=== PATIENT | male | born 1990 | race Caucasian/White ===

== ENCOUNTER 2016-11-22 19:51 | Emergency (ER) | payer SELFPAY ==
[2016-11-22] MEDS ORDERED: ONDANSETRON 4 MG TAB.RAPDIS PO ONE (20:05)
[2016-11-22] MEDS ORDERED: OXYCODONE-ACETAMINOPHEN 5-325 MG TABLET PO ONE (20:05)
--- NOTE | 2016-11-22 20:05 | ER Document Report ---
ED Medical Screen (RME) - General Stated Complaint: FALL, LOWER BACK PAIN Time seen by provider: 20:03 Mode of Arrival: Ambulatory Information source: Patient Notes: 26-year-old male fell 6 feet onto his low back and right side. 3 hours ago. He is complaining of low back pain and right hip pain. TRAVEL OUTSIDE OF THE [place] IN LAST 30 DAYS: No - Related Data Allergies/Adverse Reactions: No Known Allergies Allergy (Verified 05/27/14 23:59) Past Medical History - Past Medical History Cardiac Medical History: Reports: Hx Atrial Fibrillation - Immunizations Immunizations up to date: Yes Hx Diphtheria, Pertussis, Tetanus Vaccination: Yes
[2016-11-22] MEDS ORDERED: KETOROLAC TROMETHAMINE 60 MG/2 ML SDV IM ONE (20:49)
[2016-11-22] MEDS ORDERED: LIDOCAINE 5% (700 MG) TRANSDERMAL ADH..PATCH TP ONE (20:49)
[2016-11-22] MEDS ORDERED: HYDROCODONE/ACETAMINOPHEN 5-325 MG 6 TAB/DSPK PO PRN (20:54)
--- NOTE | 2016-11-22 20:54 | ER Document Report ---
ED General - General Chief Complaint: Back Injury Stated Complaint: FALL, LOWER BACK PAIN Mode of Arrival: Ambulatory Notes: Patient is a 26-year-old male without past medical history presents after falling off of a garage onto the ground approximately 6 feet just prior to arrival. States he fell on his back. Since that time he has had a constant, throbbing, severe pain in his bilateral perilumbar thoracic spine. Denies any additional injury or pain. He has not tried anything for relief of his symptoms. Nothing worsens the symptoms. He has no history of similar symptoms in the past. He did not contact his primary care physician regarding today's concerns. Denies any associated weakness, numbness, bowel or bladder incontinence or retention. TRAVEL OUTSIDE OF THE [place] IN LAST 30 DAYS: No - Related Data Allergies/Adverse Reactions: No Known Allergies Allergy (Verified 05/27/14 23:59) Past Medical History - General Information source: Patient - Social History Smoking Status: Never Smoker Chew tobacco use (# tins/day): No Frequency of alcohol use: None Drug Abuse: None Family History: Reviewed & Not Pertinent Patient has suicidal ideation: No Patient has homicidal ideation: No - Past Medical History Cardiac Medical History: Reports: Hx Atrial Fibrillation Renal/ Medical History: Denies: Hx Peritoneal Dialysis - Immunizations Immunizations up to date: Yes Hx Diphtheria, Pertussis, Tetanus Vaccination: Yes Review of Systems - Review of Systems Notes: Constitutional: Negative for fever. Eyes: Negative for visual changes. ENT: Negative for facial injury Cardiovascular: Negative for chest injury. Respiratory: Negative for shortness of breath. Gastrointestinal: Negative for abdominal injury. Genitourinary: Negative for genital injury Musculoskeletal: Positive for back injury. Skin: Negative for laceration/abrasions. Neurological: Negative for head injury. Physical Exam - Vital signs Vitals: Temp Pulse Resp BP Pulse Ox 97.9 F 93 18 153/75 H 97 11/22/16 20:04 11/22/16 20:04 11/22/16 20:04 11/22/16 20:04 11/22/16 20:04 Interpretation: Hypertensive Notes: PHYSICAL EXAMINATION: GENERAL: Well-appearing, no acute distress. HEAD: Atraumatic, normocephalic. EYES: Pupils equal round and reactive to light, extraocular movements intact, sclera anicteric, conjunctiva are normal. ENT: nares patent, no oral pharyngeal trauma. no Plata's sign, no raccoon eyes. NECK: No midline cervical spine tenderness. Patient able to move their head to 45 bilaterally without any discomfort. LUNGS: Breath sounds clear to auscultation bilaterally and equal. No wheezes rales or rhonchi. HEART: Regular rate and rhythm without murmurs. CHEST WALL: No ecchymosis over the chest wall. ABDOMEN: Soft, nontender, normoactive bowel sounds. No guarding, no rebound. No seatbelt sign. EXTREMITIES: Normal range of motion, no pitting or edema. No long bone deformities. BACK: No midline spinal tenderness, step-offs, or deformities. Pain on palpation the bilateral perilumbar and thoracic spine NEUROLOGICAL: 5 out of 5 strength both distally and proximally bilateral lower extremities. 2+ patellar reflexes bilaterally. No clonus. Sensation grossly intact in the bilateral lower extremities. Patient is able to ambulate without difficulty. PSYCH: Normal mood, normal affect. SKIN: Warm, Dry, normal turgor, no rashes or lesions noted. Course - Re-evaluation Re-evalutation: 11/22/16 20:50 Presentation of a well appearing patient complaining of acute back pain after a fall. No rapid progression of symptoms, systemic symptoms including fevers, chills, weight loss, history of recent bacterial infection, bilateral symptoms, numbness, weakness, difficulty walking, urinary retention or bowel incontinence , personal history of cancer, immunosuppression, diabetes, known AAA, or history of IV drug use. Exam is without point tenderness over vertebral bodies , pulsatile abdominal mass, and patient has symmetric and intact lower extremity strength, sensation, and reflexes without clonus. 2+ symmetric medial malleolar and dorsalis pedis pulses Based on history and physical, I have a very low suspicion of a concerning etiology of pain including epidural compression syndrome, spinal infection, transverse myelitis, malignancy, abdominal aortic aneurysm, renal colic, acute lower extremity claudication, neurogenic claudication, ankylosing spondylitis, or other intra-abdominal process. Due to absence of concerning risk factors in history and physical as well as absence of rapidly progressive, severe, or bilateral symptoms, will defer imaging at this point. Plan to manage conservatively with outpatient analgesia, analgesia, and physical therapy. - Acetaminophen 650 q 4 + ibuprofen 600 q 6 - Continue normal daily activities as tolerated by pain - Provide with standard musculoskeletal back pain exercise instructions - Instruct to follow up with primary care provider if symptoms not improving - Provide careful return precautions and concerning symptoms to watch for. - Vital Signs Vital signs: Temp Pulse Resp BP Pulse Ox 98.0 F 87 18 141/82 H 97 11/22/16 21:54 11/22/16 21:54 11/22/16 21:54 11/22/16 21:54 11/22/16 21:54 - Diagnostic Test Radiology reviewed: Image reviewed, Reports reviewed Radiology results interpreted by me: 11/23/16 03:48 L-spine: No acute fracture Discharge - Discharge Clinical Impression: Back pain Qualifiers: Back pain location: low back pain Chronicity: acute Back pain laterality: unspecified Sciatica presence: without sciatica Qualified Code(s): M54.5 - Low back pain Condition: Good Disposition: HOME, SELF-CARE Additional Instructions: You have been seen in the Emergency Department (ED) today for back pain. Your workup and exam have not shown any acute abnormalities and you are likely suffering from muscle strain or possible problems with your discs, but there is no treatment that will fix your symptoms at this time. Please take the naproxen that has been prescribed as directed. You should also purchase a local lidocaine cream such as "aspercreme with lidocaine" and use per bottle instructions to the affected area. Apply heat to the area as often as you are able. Continue to keep active and avoid prolonged periods of bed rest. Please follow up with your doctor as soon as possible regarding today's ED visit and your back pain. Return to the ED for worsening back pain, fever, weakness or numbness of either leg, or if you develop either (1) an inability to urinate or have bowel movements, or (2) loss of your ability to control your bathroom functions (if you start having "accidents"), or if you develop other new symptoms that concern you.concern you. Prescriptions: Naproxen 500 mg PO BID #60 tablet Forms: Return to Work, Elevated Blood Pressure
[2016-11-22 21:54] VITALS: BP 141/82
== END 2016-11-22 21:46 | disposition home or self-care (01) ==
LOC: ER 19:51
DX: M54.5 Low back pain (principal); W13.8XXA Fall from, out of or through other building or structure, initial encounter; I48.91 Unspecified atrial fibrillation
CPT/HCPCS: 99283; 96372; 73502; 72110; J1885; S0119

== ENCOUNTER 2017-06-07 22:26 | Emergency (ER) | payer SELFPAY ==
[2017-06-07 23:28] VITALS: BP 157/90
--- NOTE | 2017-06-08 00:18 | ER Document Report ---
ED General - General Chief Complaint: Leg Swelling Stated Complaint: LEFT LEG SWELLING Time Seen by Provider: 06/08/17 00:00 Notes: Patient is a 26-year-old male who was bit in the left foot by ants. He says shortly after being bit his foot swelled and had some pain. This is a few days ago. Now the swelling has continued and worsened a little bit. Has been no redness or warmth. No pain going up his leg. No fevers. Patient says he has not been keeping his foot elevated. He has not been applying ice packs. No history of DVT. TRAVEL OUTSIDE OF THE [place] IN LAST 30 DAYS: No - Related Data Allergies/Adverse Reactions: No Known Allergies Allergy (Verified 05/27/14 23:59) Past Medical History - Social History Smoking Status: Unknown if Ever Smoked Frequency of alcohol use: None Drug Abuse: None Family History: Reviewed & Not Pertinent - Past Medical History Cardiac Medical History: Reports: Hx Atrial Fibrillation Renal/ Medical History: Denies: Hx Peritoneal Dialysis - Immunizations Immunizations up to date: Yes Hx Diphtheria, Pertussis, Tetanus Vaccination: Yes Review of Systems - Review of Systems Notes: My Normal Review Basic REVIEW OF SYSTEMS: CONSTITUTIONAL : Denies fever, chills, or sweats. Denies recent illness. RESPIRATORY: Denies cough, cold, or chest congestion. Denies shortness of breath, difficulty breathing, or wheezing. GASTROINTESTINAL: Denies abdominal pain. Denies nausea, vomiting, or diarrhea. SKIN: Denies rash or skin lesions. NEUROLOGICAL: Denies altered mental status or loss of consciousness. Denies headache. Denies weakness or paralysis or loss of use of either side. Denies problems with gait or speech. Denies sensory or motor loss. ALL OTHER SYSTEMS REVIEWED AND NEGATIVE. Physical Exam - Vital signs Vitals: Temp Pulse Resp BP Pulse Ox 98.6 F 79 18 157/90 H 94 06/07/17 23:27 06/07/17 23:27 06/07/17 23:27 06/07/17 23:27 06/07/17 23:27 - Notes Notes: General Appearance: Well nourished, alert, cooperative, no acute distress, no obvious discomfort. Well-appearing. Vitals: reviewed, See vital signs table. Eyes: PERRL, EOMI, Conjuctiva clear Mouth: No decreasd moisture Extremities: Patient has several small excoriations from previous ant bites on the dorsum of his left foot. There is some swelling to the left foot. Swelling stops at the ankle. No swelling to remainder of leg. Remainder of left lower extremity is nontender. Good distal pulses. Skin: warm, dry, appropriate color, no rash Neuro: speech clear, oriented x 3, normal affect, responds appropriately to questions. Course - Re-evaluation Re-evalutation: 06/08/17 05:39 Patient encouraged to keep his foot elevated on pillows when he is sleeping at night. Is encouraged to apply ice to the foot 20 minutes at a time. He is encouraged to take 1-2 days off work to rest and allow the foot swelling to go down. I encouraged her return to ER if he has increased swelling, pain going into his leg, fevers, or if he feels unwell. - Vital Signs Vital signs: Temp Pulse Resp BP Pulse Ox 98.6 F 79 18 157/90 H 94 06/07/17 23:27 06/07/17 23:27 06/07/17 23:27 06/07/17 23:27 06/07/17 23:27 Discharge - Discharge Clinical Impression: Foot pain, left, Allergy to ant bite Condition: Good Disposition: HOME, SELF-CARE Additional Instructions: Please keep your foot elevated on pillows and apply ice packs on the foot for no more than 20 minutes at a time. Please stay out of he heat and humidity. Please return to the ER immediately if you have worsening pain, fevers, vomiting , or worsening swelling. Forms: Return to Work
== END 2017-06-08 00:23 | disposition home or self-care (01) ==
LOC: ER 22:26
DX: T63.421A Toxic effect of venom of ants, accidental (unintentional), initial encounter (principal); M79.89 Other specified soft tissue disorders; M79.672 Pain in left foot
CPT/HCPCS: 99283

== ENCOUNTER 2017-06-16 12:46 | Emergency (ER) | payer SELFPAY ==
[2017-06-16] MEDS ORDERED: CLINDAMYCIN HCL 150 MG CAPSULE PO ONE (13:58)
[2017-06-16] MEDS ORDERED: IBUPROFEN 800 MG TABLET PO ONE (13:58)
--- NOTE | 2017-06-16 14:02 | ER Document Report ---
HPI - HPI Patient complains to provider of: Dental infection Onset: Other - 2 days Onset/Duration: Worse Quality of pain: Achy Pain Level: 5 Context: Complains of swelling to the roof of his mouth that he attributes to a bad tooth. Patient states that he has had this in the past and had to require an incision and drainage. Patient states that he does not have money to afford the root canal that he was advised to have by his dentist. Associated Symptoms: Other - dental pain. denies: Fever Exacerbated by: Denies Relieved by: Denies Similar symptoms previously: Yes Recently seen / treated by doctor: No - ROS ROS below otherwise negative: Yes Systems Reviewed and Negative: Yes All other systems reviewed and negative - CONSTITUTIONAL Constitutional: DENIES: Fever, Chills - EENT Notes: dental pain - NEURO Neurology: DENIES: Headache, Weakness - GASTROINTESTINAL Gastrointestinal: REPORTS: Nausea. 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 IN LAST 30 DAYS: No - HEENT HEENT: Atraumatic, Normocephalic. negative: Pharyngeal Exudate, Pharyngeal Tenderness, Pharyngeal Erythema, Tympanic Membrane Red, Tympanic Membrane Bulging Mouth Diagram: 1 - decay 2 - swelling, with central area of fluctuance - NECK Neck: Normal Inspection, Supple. negative: Lymphadenopathy-Left, Lymphadenopathy-Right - RESPIRATORY Respiratory: Breath Sounds Normal, No Respiratory Distress - CARDIOVASCULAR Cardiovascular: Regular Rate, Regular Rhythm, No Murmur - MUSCULOSKELETAL/EXTREMETIES Musculoskeletal/Extremeties: MAEW - NEURO Level of Consciousness: Awake, Alert, Appropriate Motor/Sensory: No Motor Deficit - DERM Integumentary: Warm, Dry, Abscess - dental Course - Re-evaluation Re-evalutation: 06/16/17 14:25 The patient has been informed that they may have pre-hypertension or hypertension based on a blood pressure reading in the emergency department. I recommend that patient call the primary care provider listed on their discharge instructions or a physician of their choice by this week to arrange follow-up for further evaluation of possible pre-hypertension or hypertension. Procedures - Incision and Drainage Face Type: Simple Incision Method: Incision made with needle Amount/type of drainage: small amount of purulent drainage Mouth/Teeth picture: 1 - .5 cm abscess I&D Discharge - Discharge Clinical Impression: Dental abscess, Elevated blood pressure reading Condition: Stable Disposition: HOME, SELF-CARE Instructions: Post Incision and Drainage, Oral Narcotic Medication ([facility]), Clindamycin ([facility]), Dentist, Dental Infection or Abscess ([facility]) Additional Instructions: Return immediately for any new or worsening symptoms Followup with your dental care provider, call tomorrow to make a followup appointment Prescriptions: Clindamycin HCl [Cleocin 300 mg Capsule] 300 mg PO TID #21 capsule Naproxen [Naprosyn 250 Nmg Tablet] 1 tab PO BID #14 tablet Oxycodone HCl/Acetaminophen [Percocet 5-325 mg Tablet] 1 tab PO ASDIR PRN #12 tablet PRN Reason: Forms: Elevated Blood Pressure, Return to Work Referrals: [facility] [Provider Group] - Follow up as needed
[2017-06-16 14:24] VITALS: BP 139/80
== END 2017-06-16 14:20 | disposition home or self-care (01) ==
LOC: ER 12:46
PROC: 0W930ZZ Drainage of Oral Cavity and Throat, Open Approach (ICD-10-PCS; principal; 2017-06-16)
DX: K04.7 Periapical abscess without sinus (principal); R11.0 Nausea; F17.200 Nicotine dependence, unspecified, uncomplicated; R03.0 Elevated blood-pressure reading, without diagnosis of hypertension
CPT/HCPCS: 99283

== ENCOUNTER 2017-09-23 09:09 | Emergency (ER) | payer SELFPAY ==
[2017-09-23 09:14] VITALS: BP 149/78
[2017-09-23] MEDS ORDERED: SULFAMETHOXAZOLE/TRIMETHOPRIM 800-160 MG TABLET PO ONE (10:00)
[2017-09-23] MEDS ORDERED: LIDOCAINE 1% INJ-PF (10 MG/ML) 30 ML SDV INJ ONE (10:00)
[2017-09-23] MEDS ORDERED: IBUPROFEN 800 MG TABLET PO ONE (10:01)
--- NOTE | 2017-09-23 10:01 | ER Document Report ---
HPI - HPI Patient complains to provider of: abscess Pain Level: 4 Context: Patient is a 27-year-old male presents emergency department complaining of a tender swollen area under his left axilla. Patient states been there for 2 days. Patient states is a history of abscesses and folliculitis. Patient denies any drainage from the site. Otherwise denies any fevers or chills. - REPRODUCTIVE Reproductive: DENIES: : Past Medical History - Social History Smoking Status: Current Every Day Smoker Family History: Reviewed & Not Pertinent - Past Medical History Cardiac Medical History: Reports: Hx Atrial Fibrillation Renal/ Medical History: Denies: Hx Peritoneal Dialysis - Immunizations Immunizations up to date: Yes Hx Diphtheria, Pertussis, Tetanus Vaccination: Yes Vertical Provider Document - CONSTITUTIONAL Notes: PHYSICAL EXAM GENERAL: Alert, interacts well. EXTREMITIES: Moves all 4 extremities spontaneously. No edema, radial and dorsalis pedis pulses 2/4 bilaterally. No cyanosis. NEUROLOGICAL: Alert and oriented x4. Normal speech. PSYCH: Normal affect, normal mood. SKIN: Warm, dry, normal turgor. Left axilla with tender, indurated area with central fluctuance - INFECTION CONTROL TRAVEL OUTSIDE OF THE [place] IN LAST 30 DAYS: No - RESPIRATORY O2 Sat by Pulse Oximetry: 96 Course - Re-evaluation Re-evalutation: 09/23/17 10:33 Patient is a 27-year-old male who is hemodynamically stable, no acute distress and afebrile. Presentation is consistent with abscess with surrounding cellulitis. I&D performed for minimal purulent material. Patient placed on antibiotic and to follow-up with primary care. Patient agrees with plan and is stable for discharge home. - Vital Signs Vital signs: Temp Pulse Resp BP Pulse Ox 97.3 F 66 18 149/78 H 96 09/23/17 09:12 09/23/17 09:12 09/23/17 09:12 09/23/17 09:12 09/23/17 09:12 Procedures - Incision and Drainage Left Type: Simple - axilla Anesthetic type: 1% Lidocaine mL's of anesthetic: 5 Blade size: 11 I&D procedure: Betadine prep applied Incision Method: Incision made by scalpel Amount/type of drainage: 5cc purulent material Discharge - Discharge Clinical Impression: Abscess Condition: Good Disposition: HOME, SELF-CARE Instructions: Abscess ([facility]), MRSA Cellulitis ([facility]), Post Incision and Drainage , Trimethoprim-Sulfa ([facility]) Prescriptions: Acetaminophen with Codeine [Acetaminophen-Cod #3 Tablet] 1 each PO TIDP PRN #10 tablet PRN Reason: Referrals: [facility] [Provider Group] - Follow up in 1 week
== END 2017-09-23 11:06 | disposition home or self-care (01) ==
LOC: ER 09:09
PROC: 0H9CXZZ Drainage of Left Upper Arm Skin, External Approach (ICD-10-PCS; principal; 2017-09-23)
DX: L02.412 Cutaneous abscess of left axilla (principal); F17.200 Nicotine dependence, unspecified, uncomplicated; I48.91 Unspecified atrial fibrillation
CPT/HCPCS: 99283; 10060; J3490

== ENCOUNTER 2018-02-16 15:44 | Emergency (ER) | payer SELFPAY ==
[2018-02-16 15:52] VITALS: BP 149/93
[2018-02-16] MEDS ORDERED: BUPIVACAINE HCL 0.5 % INJ/PF 30 ML SDV INJ ONE (16:53)
[2018-02-16] MEDS ORDERED: LIDOCAINE 1% INJ (10 MG/ML) 10 ML MDV INJ ONE (16:53)
--- NOTE | 2018-02-16 16:58 | ER Document Report ---
ED Oral Problem - General Chief Complaint: Toothache Stated Complaint: TOOTH PAIN Time Seen by Provider: 02/16/18 16:11 Mode of Arrival: Ambulatory Information source: Patient TRAVEL OUTSIDE OF THE [place] IN LAST 30 DAYS: No - HPI Patient complains to provider of: Toothache Onset: Last week Onset: Gradual Notes: Patient is here with complaints of right-sided dental pain. He states that he feels like his right upper wisdom tooth may be coming through because he is having pain in the gum feels like there is something hard poking through the gum in this area. No swelling. He also states that for the last week he has had a lot of pain in the right lower first molar. States that he thinks the nerve is exposed as he tried to put some clove oil on a Q-tip and touch the tooth and it caused significant pain. States that he has not eaten anything in a day because of the pain. He denies any fevers. He denies any nausea, vomiting, diarrhea. No difficulty breathing or swallowing. He denies any headache, blurred vision, numbness, tingling, weakness. No facial swelling. No chest pain or shortness of breath. He denies any other complaints at this time. - Related Data Allergies/Adverse Reactions: tramadol Allergy (Intermediate, Verified 09/23/17 11:09) Nightmares Past Medical History - Social History Smoking Status: Current Every Day Smoker Chew tobacco use (# tins/day): No Frequency of alcohol use: None Drug Abuse: None Family History: Reviewed & Not Pertinent Patient has suicidal ideation: No Patient has homicidal ideation: No - Past Medical History Cardiac Medical History: Reports: Hx Atrial Fibrillation Renal/ Medical History: Denies: Hx Peritoneal Dialysis - Immunizations Immunizations up to date: Yes Hx Diphtheria, Pertussis, Tetanus Vaccination: Yes Review of Systems - Review of Systems -: Yes All other systems reviewed and negative Physical Exam - Vital signs Vitals: Temp Pulse Resp BP Pulse Ox 98.1 F 68 16 149/93 H 97 02/16/18 15:51 02/16/18 15:51 02/16/18 15:51 02/16/18 15:51 02/16/18 15:51 - Notes Notes: GENERAL: alert, cooperative, nontoxic, no distress. HEAD: normocephalic, atraumatic EYES: conjunctiva pink without discharge, no external redness or swelling. EARS: no external swelling, no external redness NOSE: atraumatic, no external swelling MOUTH/THROAT: mucous membranes moist and pink. Posterior pharynx without erythema, swelling, exudate. No trismus or drooling. Voice is normal. No peritonsillar abscess. Widespread dental decay. Mild tenderness to palpation of the gum of the right upper maxilla over the area where the right upper third molar would be. I do not see any tooth eruption. There is no swelling or redness. Large cavity to the nuchal aspect of the right first lower molar. There is no gum swelling or abscess. No facial swelling. No trismus or drooling. No sublingual swelling or induration. NECK: soft, supple, full range of motion, no meningismus. CHEST: no distress, lungs clear and equal throughout. No wheezing, rales, rhonchi. CARDIAC: regular rate and rhythm, no murmur, normal capillary refill, normal pulses. BACK: full range of motion, no CVA tenderness. EXTREMITIES: full range of motion of all extremities. No redness, no swelling. NEURO: alert and oriented 3, no focal deficits, full range of motion of all extremities. PYSCH: appropriate mood, affect. Patient is cooperative. SKIN: pink, warm, dry, no rash. Course - Re-evaluation Re-evalutation: 02/16/18 17:23 Patient is nontoxic appearing with stable vitals. The patient is here with complaints of right upper and lower dental pain. On exam he has some tenderness to the right upper gumline where the right upper third molar would be. I do not appreciate any eruption of tooth or swelling to this area. His right lower first molar is noted to have large dental Chely on the mucosal aspect. There is no gum swelling or abscess. He has no trismus or drooling. No sublingual swelling or induration or signs of Evaristo's angina. Airway is patent. He swallowing and breathing without any difficulty. At this point patient appears to have dental pain secondary to dental cavity. Was able to perform a dental block with 1% lidocaine and half percent bupivacaine. Patient tolerated this procedure well. He states that he has a dentist that he can follow-up with on Thursday. He was instructed to follow-up with his dentist at the next available appointment, he should follow-up sooner for worsening pain, high fever, facial swelling, difficulty breathing or swallowing, or for any further concerns. The patient is noted to have elevated blood pressure during today's emergency department visit. The patient was informed of this finding. The patient was instructed that this may be related to pre-hypertension and requires further evaluation with a primary care provider. The patient has no hypertensive symptoms at this time. The patient's emergency department workup and current diagnosis were explained to the patient and or family. Follow-up instructions were provided. Medications if prescribed were discussed. Instructions for when to return to the emergency department including specific worrisome symptoms were discussed with the patient and/or family. - Vital Signs Vital signs: Temp Pulse Resp BP Pulse Ox 98.1 F 68 16 149/93 H 97 02/16/18 15:51 02/16/18 15:51 02/16/18 15:51 02/16/18 15:51 02/16/18 15:51 Procedures - Additional Procedures Dental block Notes: 02/16/18 17:25 Dental block performed with 1% lidocaine without epinephrine and half percent bupivacaine. 25-gauge needle was used. Mandibular block was performed. Patient tolerated the procedure well with no immediate complications. Discharge - Discharge Clinical Impression: Pain due to dental caries Condition: Stable Disposition: HOME, SELF-CARE Instructions: [facility], Toothache ([facility]), Penicillin V K ([facility]), Dentist Additional Instructions: Take medication as prescribed. Follow-up with your dentist at the next available appointment. Follow-up sooner for increasing pain, fever, swelling, difficulty breathing or swallowing, or for any further concerns. Your blood pressure was elevated during today's visit. Have this rechecked with your doctor. Prescriptions: Diclofenac Sodium [Voltaren 50 Mg Tablet.] 50 mg PO BID #20 tablet. Penicillin V Potassium [Penicillin Vk 500 mg Tablet] 500 mg PO BID #20 tablet Forms: Elevated Blood Pressure, Smoking Cessation Education Referrals: [facility] [Provider Group] - Follow up as needed
== END 2018-02-16 17:34 | disposition home or self-care (01) ==
LOC: ER 15:44
PROC: 3E0T3BZ Introduction of Anesthetic Agent into Peripheral Nerves and Plexi, Percutaneous Approach (ICD-10-PCS; principal; 2018-02-16)
PROC: 3E0T33Z Introduction of Anti-inflammatory into Peripheral Nerves and Plexi, Percutaneous Approach (ICD-10-PCS; 2018-02-16)
DX: K02.9 Dental caries, unspecified (principal); K08.89 Other specified disorders of teeth and supporting structures; R03.0 Elevated blood-pressure reading, without diagnosis of hypertension; F17.200 Nicotine dependence, unspecified, uncomplicated
CPT/HCPCS: 99282